=== PATIENT | male | born 1955 | race Caucasian/White ===

== ENCOUNTER 2020-07-09 13:17 | Inpatient (IN) | payer OTHER ==
[2020-07-09] MEDS ORDERED: Acetaminophen 500 MG TAB ONE (14:25)
[2020-07-09 14:45] LABS: #Monocytes 0.1 10x3/uL (0.0-1.1); #Neutrophils 7.4 10x3/uL (1.5-8.4); %Basophils 0.3 % (0.0-2.0); %Eosinophils 0.4 % (0.0-6.0); %Lymphocytes 2.3 % (18.0-47.0); %Neutrophils 95.7 % (40.0-75.0); Hemoglobin 14.2 g/dL (13.5-17.5); Mean Corpuscular HGB CONC 32.9 g/dL (32.0-36.0); Mean Corpuscular Hemoglobin 29.3 pg (27.0-33.0); Mean Corpuscular Volume 89.1 fl (81.2-95.1); Mean Platelet Volume 10.9 fl (7.4-10.4); Platelet Count 152 10x3/uL (150-450); RBC Distribution Width 12.8 % (11.5-14.5); Red Blood Cell (RBC) Count 4.85 10x6/uL (4.32-5.72); White Blood Cell (WBC) Count 7.7 10x3/uL (3.5-10.5)
[2020-07-09 15:07] LABS: ALT (SGPT) 18 U/L (8-55); AST (SGOT) 19 U/L (5-34); Albumin 3.7 g/dL (3.4-4.8); Alkaline Phosphatase 97 U/L (40-110); Anion Gap 18 mmol/L (10-20); BUN (Urea Nitrogen) 33 mg/dL (8.4-25.7); Calc. Creatinine Clearance 0 mL/min (70-130); Calcium 10.3 mg/dL (7.8-10.44); Carbon Dioxide 23 mmol/L (23-31); Chloride 99 mmol/L (98-107); Globulin 3.2 g/dL (2.4-3.5); Glucose 196 mg/dL (80-115); Potassium 4.5 mmol/L (3.5-5.1); Protein, Total 6.9 g/dL (5.8-8.1); Sodium 135 mmol/L (136-145)
[2020-07-09] MEDS ORDERED: Cefepime 2 GM VIAL ONE (15:08)
[2020-07-09] MEDS ORDERED: Ondansetron PF 4 MG/2 ML Vial IVP PRN (17:50)
[2020-07-09] MEDS ORDERED: Acetaminophen 650 MG Suppository PR PRN (17:50)
[2020-07-09] MEDS ORDERED: Ondansetron ODT 4 MG TAB PO PRN (17:50)
[2020-07-09] MEDS ORDERED: Dextrose 5% in Water 1,000 ML IV PRN (17:50)
[2020-07-09] MEDS ORDERED: Dextrose 50% Abboject 50 ML SYRINGE SLOW IVP PRN (17:50)
[2020-07-09] MEDS ORDERED: Insulin Regular 300 UNITS/3 ML VIAL ONE (19:09)
[2020-07-09] MEDS ORDERED: Heparin 5,000 UNITS/ML VIAL ONE (20:54)
[2020-07-09] MEDS: Vancomycin HCl 1 GM in Sodium Chloride 0.9% 250 ML 250 ML IVPB SCH (21:35)
[2020-07-10 04:35] LABS: #Basophils 0.1 10x3/uL (0.0-0.2); #Eosinphils 0.2 10x3/uL (0.0-0.5); #Monocytes 1.7 10x3/uL (0.0-1.1); #Neutrophils 13.9 10x3/uL (1.5-8.4); %Basophils 0.4 % (0.0-2.0); %Lymphocytes 5.3 % (18.0-47.0); %Monocytes 10.2 % (0.0-10.0); %Neutrophils 82.4 % (40.0-75.0); Hemoglobin 12.3 g/dL (13.5-17.5); Mean Corpuscular HGB CONC 32.2 g/dL (32.0-36.0); Mean Corpuscular Hemoglobin 28.8 pg (27.0-33.0); Mean Corpuscular Volume 89.5 fl (81.2-95.1); Mean Platelet Volume 10.8 fl (7.4-10.4); Platelet Count 141 10x3/uL (150-450); RBC Distribution Width 13.4 % (11.5-14.5); Red Blood Cell (RBC) Count 4.27 10x6/uL (4.32-5.72); White Blood Cell (WBC) Count 16.9 10x3/uL (3.5-10.5)
[2020-07-10 04:51] LABS: Anion Gap 15 mmol/L (10-20); BUN (Urea Nitrogen) 35 mg/dL (8.4-25.7); Calc. Creatinine Clearance 0 mL/min (70-130); Calcium 9.4 mg/dL (7.8-10.44); Carbon Dioxide 24 mmol/L (23-31); Chloride 101 mmol/L (98-107); Glucose 251 mg/dL (80-115); Potassium 4.6 mmol/L (3.5-5.1); Sodium 135 mmol/L (136-145)
[2020-07-10] MEDS: Sodium Chloride 0.9% 1,000 ML IV SCH ×3 (06:26→12:25)
[2020-07-10] MEDS: Insulin Regular 300 UNITS/3 ML VIAL SC PRN ×3 (06:27→20:34)
[2020-07-10] MEDS: Levothyroxine Sodium 50 MCG TAB PO SCH (06:28)
[2020-07-10] MEDS ORDERED: Mycophenolate ER 180 MG TAB PO SCH ×2 (07:30→21:00)
[2020-07-10] MEDS ORDERED: Tacrolimus 1 MG CAP PO SCH ×2 (09:00→21:00)
[2020-07-10] MEDS: Heparin 5,000 UNITS/ML VIAL SC SCH ×4 (09:00→20:30)
[2020-07-10] MEDS ORDERED: Flecainide 50 MG TAB PO SCH (09:00)
[2020-07-10] MEDS ORDERED: Tacrolimus 0.5 MG CAP PO SCH (09:00)
[2020-07-10 11:55] VITALS: BMI 35.3
[2020-07-10] MEDS: Tacrolimus 0.5 MG CAP PO SCH ×2 (12:11→20:27)
[2020-07-10] MEDS: hydrALAZINE 25 MG TAB PO SCH ×3 (12:12→21:44)
[2020-07-10] MEDS: Mycophenolate ER 180 MG TAB PO SCH ×3 (12:13→20:25)
[2020-07-10] MEDS: Vancomycin HCl 1 GM in Sodium Chloride 0.9% 250 ML 250 ML IVPB SCH ×2 (15:04→20:35)
[2020-07-10] MEDS: predniSONE 5 MG TAB PO SCH (15:09)
[2020-07-10] MEDS: Cefepime 2 GM in Sodium Chloride 0.9% 100 ML IVPB SCH (18:32)
[2020-07-10] MEDS: Atorvastatin Calcium 40 MG TAB PO SCH (20:24)
[2020-07-10] MEDS: Flecainide 50 MG TAB PO SCH (20:25)
[2020-07-10] MEDS ORDERED: Non-Formulary Medication 1 EACH (Hydralazine Hcl [Hydralazine Hcl] 50 MG Tablet) PO SCH (21:00)
[2020-07-10] MEDS ORDERED: Apixaban 5 MG TAB PO SCH (21:00)
[2020-07-10] MEDS ORDERED: Atorvastatin Calcium 40 MG TAB PO SCH (21:00)
[2020-07-11] MEDS: Sodium Chloride 0.9% 1,000 ML IV SCH (00:08)
[2020-07-11 04:57] LABS: #Basophils 0.1 10x3/uL (0.0-0.2); #Eosinphils 0.2 10x3/uL (0.0-0.5); #Monocytes 1.3 10x3/uL (0.0-1.1); #Neutrophils 10.8 10x3/uL (1.5-8.4); %Basophils 0.4 % (0.0-2.0); %Eosinophils 1.1 % (0.0-6.0); %Lymphocytes 6.9 % (18.0-47.0); %Monocytes 9.9 % (0.0-10.0); Mean Corpuscular HGB CONC 32.9 g/dL (32.0-36.0); Mean Corpuscular Hemoglobin 29.3 pg (27.0-33.0); Mean Platelet Volume 10.8 fl (7.4-10.4); Platelet Count 150 10x3/uL (150-450); RBC Distribution Width 13.1 % (11.5-14.5); Red Blood Cell (RBC) Count 4.44 10x6/uL (4.32-5.72); White Blood Cell (WBC) Count 13.3 10x3/uL (3.5-10.5)
[2020-07-11 05:08] LABS: ALT (SGPT) 14 U/L (8-55); AST (SGOT) 12 U/L (5-34); Albumin 3.2 g/dL (3.4-4.8); Alkaline Phosphatase 82 U/L (40-110); Anion Gap 14 mmol/L (10-20); BUN (Urea Nitrogen) 29 mg/dL (8.4-25.7); Bilirubin, Total 0.8 mg/dL (0.2-1.2); Calc. Creatinine Clearance 90 mL/min (70-130); Calcium 9.3 mg/dL (7.8-10.44); Carbon Dioxide 22 mmol/L (23-31); Chloride 105 mmol/L (98-107); Globulin 2.8 g/dL (2.4-3.5); Glucose 217 mg/dL (80-115); Magnesium 1.7 mg/dL (1.6-2.6); Potassium 4.6 mmol/L (3.5-5.1); Sodium 136 mmol/L (136-145)
[2020-07-11] MEDS: Levothyroxine Sodium 50 MCG TAB PO SCH (06:06)
[2020-07-11] MEDS: Insulin Regular 300 UNITS/3 ML VIAL SC PRN ×3 (06:07→21:40)
[2020-07-11 08:37] LABS: Vancomycin, Trough 13.1 ug/mL
[2020-07-11] MEDS ORDERED: Tacrolimus 1 MG CAP PO SCH (09:00)
[2020-07-11] MEDS: Mycophenolate ER 180 MG TAB PO SCH ×2 (09:54→21:38)
[2020-07-11] MEDS: predniSONE 5 MG TAB PO SCH (09:54)
[2020-07-11] MEDS: Tacrolimus 0.5 MG CAP PO SCH ×2 (09:54→21:35)
[2020-07-11] MEDS: Flecainide 50 MG TAB PO SCH ×2 (09:54→21:34)
[2020-07-11] MEDS: hydrALAZINE 25 MG TAB PO SCH ×3 (09:54→21:35)
[2020-07-11] MEDS: Cilostazol 100 MG TAB PO SCH ×2 (09:54→16:25)
[2020-07-11] MEDS: Heparin 5,000 UNITS/ML VIAL SC SCH ×3 (09:54→21:36)
[2020-07-11] MEDS: Vancomycin HCl 1 GM in Sodium Chloride 0.9% 250 ML 250 ML IVPB SCH (09:55)
[2020-07-11 11:17] LABS: Hemoglobin A1c 7.9 % (4.0-6.0)
[2020-07-11] MEDS: VANCOMYCIN 1.25 GM/250 ML BAG 1.25 GM in Premix Bag 1 BAG IVPB SCH (11:49)
[2020-07-11] MEDS: Cefepime 2 GM in Sodium Chloride 0.9% 100 ML IVPB SCH (16:25)
[2020-07-11] MEDS: Atorvastatin Calcium 40 MG TAB PO SCH (21:36)
[2020-07-11] MEDS ORDERED: Vancomycin HCl 750 MG in Sodium Chloride 0.9% 250 ML 250 ML IVPB SCH (22:45)
[2020-07-11] MEDS ORDERED: Vancomycin HCl 500 MG in Sodium Chloride 0.9% 100 ML IVPB SCH (23:59)
[2020-07-12] MEDS: VANCOMYCIN 1.25 GM/250 ML BAG 1.25 GM in Premix Bag 1 BAG IVPB SCH ×3 (01:34→22:14)
[2020-07-12] MEDS: Cefepime 2 GM in Sodium Chloride 0.9% 100 ML IVPB SCH ×2 (02:39→16:50)
[2020-07-12] MEDS: Levothyroxine Sodium 50 MCG TAB PO SCH (05:49)
[2020-07-12 05:59] LABS: #Eosinphils 0.2 10x3/uL (0.0-0.5); #Monocytes 1.3 10x3/uL (0.0-1.1); #Neutrophils 8.4 10x3/uL (1.5-8.4); %Basophils 0.4 % (0.0-2.0); %Lymphocytes 8.2 % (18.0-47.0); %Monocytes 11.7 % (0.0-10.0); %Neutrophils 77.1 % (40.0-75.0); Hemoglobin 12.6 g/dL (13.5-17.5); Mean Corpuscular HGB CONC 32.4 g/dL (32.0-36.0); Mean Corpuscular Hemoglobin 28.9 pg (27.0-33.0); Mean Corpuscular Volume 89.2 fl (81.2-95.1); Mean Platelet Volume 11.5 fl (7.4-10.4); Platelet Count 168 10x3/uL (150-450); Red Blood Cell (RBC) Count 4.36 10x6/uL (4.32-5.72); White Blood Cell (WBC) Count 10.9 10x3/uL (3.5-10.5)
[2020-07-12 06:03] LABS: Lactic Acid 0.9 mmol/L (0.5-2.2)
[2020-07-12 06:18] LABS: Anion Gap 16 mmol/L (10-20); BUN (Urea Nitrogen) 25 mg/dL (8.4-25.7); Calc. Creatinine Clearance 95 mL/min (70-130); Calcium 9.7 mg/dL (7.8-10.44); Carbon Dioxide 21 mmol/L (23-31); Chloride 104 mmol/L (98-107); Glucose 198 mg/dL (80-115); Potassium 4.5 mmol/L (3.5-5.1); Sodium 136 mmol/L (136-145)
[2020-07-12] MEDS: Mycophenolate ER 180 MG TAB PO SCH ×2 (09:01→22:02)
[2020-07-12] MEDS: predniSONE 5 MG TAB PO SCH (09:01)
[2020-07-12] MEDS: Flecainide 50 MG TAB PO SCH ×2 (09:01→22:00)
[2020-07-12] MEDS: hydrALAZINE 25 MG TAB PO SCH ×3 (09:01→22:00)
[2020-07-12] MEDS: Heparin 5,000 UNITS/ML VIAL SC SCH ×3 (09:01→22:01)
[2020-07-12] MEDS: Cilostazol 100 MG TAB PO SCH ×2 (09:01→19:23)
[2020-07-12] MEDS: Tacrolimus 0.5 MG CAP PO SCH ×2 (09:01→22:01)
[2020-07-12] MEDS ORDERED: Neomycin-Polymyxin 1 ML AMP ONE ×2 (13:28→14:13)
[2020-07-12] MEDS ORDERED: Fentanyl 100 MCG/2 ML VIAL ONE (13:42)
[2020-07-12] MEDS ORDERED: PROPOFOL 20 ML ONE (13:42)
[2020-07-12] MEDS ORDERED: Ondansetron PF 4 MG/2 ML Vial ONE (13:43)
[2020-07-12] MEDS ORDERED: Lidocaine 1% PF 5 ML VIAL ONE (13:43)
[2020-07-12] MEDS ORDERED: Dexamethasone 20 MG/5 ML VIAL ONE (13:43)
[2020-07-12 21:14] LABS: Vancomycin, Trough 18.8 ug/mL
[2020-07-12] MEDS: Atorvastatin Calcium 40 MG TAB PO SCH (22:01)
[2020-07-12] MEDS: Insulin Regular 300 UNITS/3 ML VIAL SC PRN (22:04)
[2020-07-12] MEDS: Acetaminophen 325 MG TAB PO PRN (22:11)
[2020-07-13] MEDS: Cefepime 2 GM in Sodium Chloride 0.9% 100 ML IVPB SCH ×2 (01:56→15:24)
[2020-07-13 04:41] LABS: Anion Gap 14 mmol/L (10-20); BUN (Urea Nitrogen) 32 mg/dL (8.4-25.7); Calc. Creatinine Clearance 84 mL/min (70-130); Calcium 9.1 mg/dL (7.8-10.44); Carbon Dioxide 21 mmol/L (23-31); Chloride 100 mmol/L (98-107); Glucose 409 mg/dL (80-115); Sodium 130 mmol/L (136-145)
[2020-07-13 04:42] LABS: #Monocytes 0.5 10x3/uL (0.0-1.1); #Neutrophils 10.8 10x3/uL (1.5-8.4); %Basophils 0.1 % (0.0-2.0); %Neutrophils 91.1 % (40.0-75.0); Hemoglobin 13.2 g/dL (13.5-17.5); Mean Corpuscular HGB CONC 32.8 g/dL (32.0-36.0); Mean Corpuscular Hemoglobin 29.2 pg (27.0-33.0); Mean Corpuscular Volume 89.2 fl (81.2-95.1); Mean Platelet Volume 11.6 fl (7.4-10.4); Platelet Count 179 10x3/uL (150-450); RBC Distribution Width 12.6 % (11.5-14.5); Red Blood Cell (RBC) Count 4.52 10x6/uL (4.32-5.72); White Blood Cell (WBC) Count 11.9 10x3/uL (3.5-10.5)
[2020-07-13] MEDS: Levothyroxine Sodium 50 MCG TAB PO SCH (06:28)
[2020-07-13] MEDS: Lantus 1000 UNITS/10 ML VIAL SC SCH (09:08)
[2020-07-13] MEDS: Heparin 5,000 UNITS/ML VIAL SC SCH ×3 (09:08→21:02)
[2020-07-13] MEDS: Insulin Regular 300 UNITS/3 ML VIAL SC PRN ×2 (09:09→21:11)
[2020-07-13] MEDS: Cholecalciferol 1,000 UNITS (25 MCG) TAB PO SCH (09:10)
[2020-07-13] MEDS: Multivit, Therapeutic 1 TAB PO SCH (09:10)
[2020-07-13] MEDS: Losartan 25 MG TAB PO SCH (09:10)
[2020-07-13] MEDS: Tacrolimus 0.5 MG CAP PO SCH ×2 (09:11→21:00)
[2020-07-13] MEDS: Magnesium Oxide 400 MG TAB PO SCH ×2 (09:11→21:02)
[2020-07-13] MEDS: Cilostazol 100 MG TAB PO SCH ×2 (09:11→15:24)
[2020-07-13] MEDS: Flecainide 50 MG TAB PO SCH ×2 (09:11→21:00)
[2020-07-13] MEDS: hydrALAZINE 25 MG TAB PO SCH ×3 (09:11→21:00)
[2020-07-13] MEDS: Zinc Gluconate 50 MG TAB PO SCH (09:11)
[2020-07-13] MEDS: Ascorbic Acid 500 mg Chewable Tablet PO SCH (09:11)
[2020-07-13] MEDS: Mycophenolate ER 180 MG TAB PO SCH ×2 (09:13→22:55)
[2020-07-13 09:38] LABS: Tacrolimus 8.8 ng/mL (2.0-20.0)
[2020-07-13] MEDS: VANCOMYCIN 1.25 GM/250 ML BAG 1.25 GM in Premix Bag 1 BAG IVPB SCH ×2 (11:55→21:26)
[2020-07-13] MEDS: predniSONE 5 MG TAB PO SCH (11:55)
[2020-07-13] MEDS: HumaLOG 300 UNITS/3 ML VIAL SC PRN (13:37)
[2020-07-13] MEDS: Atorvastatin Calcium 40 MG TAB PO SCH (21:00)
[2020-07-14] MEDS: Cefepime 2 GM in Sodium Chloride 0.9% 100 ML IVPB SCH ×2 (03:34→15:22)
[2020-07-14] MEDS ORDERED: Amlodipine 5 MG TAB PO SCH (04:00)
[2020-07-14 04:22] LABS: #Basophils 0.1 10x3/uL (0.0-0.2); #Eosinphils 0.2 10x3/uL (0.0-0.5); #Monocytes 0.8 10x3/uL (0.0-1.1); %Basophils 0.7 % (0.0-2.0); %Eosinophils 2.2 % (0.0-6.0); %Lymphocytes 12.3 % (18.0-47.0); %Monocytes 7.8 % (0.0-10.0); %Neutrophils 75.2 % (40.0-75.0); Hemoglobin 13.4 g/dL (13.5-17.5); Mean Corpuscular HGB CONC 32.1 g/dL (32.0-36.0); Mean Corpuscular Hemoglobin 29.1 pg (27.0-33.0); Mean Corpuscular Volume 90.9 fl (81.2-95.1); Mean Platelet Volume 10.9 fl (7.4-10.4); Platelet Count 213 10x3/uL (150-450); RBC Distribution Width 12.8 % (11.5-14.5); White Blood Cell (WBC) Count 10.7 10x3/uL (3.5-10.5)
[2020-07-14 05:06] LABS: Anion Gap 18 mmol/L (10-20); BUN (Urea Nitrogen) 36 mg/dL (8.4-25.7); Calc. Creatinine Clearance 91 mL/min (70-130); Calcium 9.8 mg/dL (7.8-10.44); Carbon Dioxide 19 mmol/L (23-31); Chloride 102 mmol/L (98-107); Glucose 294 mg/dL (80-115); Potassium 4.9 mmol/L (3.5-5.1); Sodium 134 mmol/L (136-145)
[2020-07-14] MEDS: Levothyroxine Sodium 50 MCG TAB PO SCH (06:37)
[2020-07-14] MEDS: HumaLOG 300 UNITS/3 ML VIAL SC PRN ×3 (06:38→21:11)
[2020-07-14] MEDS: Cilostazol 100 MG TAB PO SCH ×2 (08:34→15:21)
[2020-07-14] MEDS: Zinc Gluconate 50 MG TAB PO SCH (08:35)
[2020-07-14] MEDS: Multivit, Therapeutic 1 TAB PO SCH (08:35)
[2020-07-14] MEDS: Ascorbic Acid 500 mg Chewable Tablet PO SCH (08:35)
[2020-07-14] MEDS: Heparin 5,000 UNITS/ML VIAL SC SCH ×3 (08:35→21:03)
[2020-07-14] MEDS: Lantus 1000 UNITS/10 ML VIAL SC SCH (08:35)
[2020-07-14] MEDS: Cholecalciferol 1,000 UNITS (25 MCG) TAB PO SCH (08:35)
[2020-07-14] MEDS: Losartan 25 MG TAB PO SCH (08:36)
[2020-07-14] MEDS: Mycophenolate ER 180 MG TAB PO SCH ×2 (08:36→21:03)
[2020-07-14] MEDS: Magnesium Oxide 400 MG TAB PO SCH ×2 (08:36→21:03)
[2020-07-14] MEDS: Flecainide 50 MG TAB PO SCH ×2 (08:36→21:03)
[2020-07-14] MEDS: predniSONE 5 MG TAB PO SCH (08:36)
[2020-07-14] MEDS: Tacrolimus 0.5 MG CAP PO SCH ×2 (08:36→21:04)
[2020-07-14] MEDS: hydrALAZINE 25 MG TAB PO SCH ×3 (08:36→21:03)
[2020-07-14] MEDS: VANCOMYCIN 1.25 GM/250 ML BAG 1.25 GM in Premix Bag 1 BAG IVPB SCH (08:38)
[2020-07-14 09:26] LABS: Vancomycin, Trough 26.6 ug/mL
[2020-07-14] MEDS: Atorvastatin Calcium 40 MG TAB PO SCH (21:03)
[2020-07-15] MEDS: Cefepime 2 GM in Sodium Chloride 0.9% 100 ML IVPB SCH ×2 (03:38→15:33)
[2020-07-15] MEDS ORDERED: hydrALAZINE 25 MG TAB PO SCH (04:15)
[2020-07-15] MEDS: Levothyroxine Sodium 50 MCG TAB PO SCH (05:17)
[2020-07-15] MEDS: Vancomycin HCl 1 GM in Sodium Chloride 0.9% 250 ML 250 ML IVPB SCH ×2 (05:18→17:05)
[2020-07-15] MEDS: HumaLOG 300 UNITS/3 ML VIAL SC PRN ×4 (05:23→21:37)
[2020-07-15 06:01] LABS: #Basophils 0.1 10x3/uL (0.0-0.2); #Eosinphils 0.3 10x3/uL (0.0-0.5); #Neutrophils 7.2 10x3/uL (1.5-8.4); %Basophils 0.9 % (0.0-2.0); %Eosinophils 3.2 % (0.0-6.0); %Lymphocytes 12.2 % (18.0-47.0); %Monocytes 9.6 % (0.0-10.0); %Neutrophils 70.6 % (40.0-75.0); Hemoglobin 13.9 g/dL (13.5-17.5); Mean Corpuscular Hemoglobin 28.5 pg (27.0-33.0); Mean Corpuscular Volume 88.9 fl (81.2-95.1); Mean Platelet Volume 10.7 fl (7.4-10.4); Platelet Count 242 10x3/uL (150-450); RBC Distribution Width 12.8 % (11.5-14.5); Red Blood Cell (RBC) Count 4.88 10x6/uL (4.32-5.72); White Blood Cell (WBC) Count 10.3 10x3/uL (3.5-10.5)
[2020-07-15 06:11] LABS: Anion Gap 16 mmol/L (10-20); BUN (Urea Nitrogen) 31 mg/dL (8.4-25.7); Calc. Creatinine Clearance 101 mL/min (70-130); Calcium 10.1 mg/dL (7.8-10.44); Carbon Dioxide 21 mmol/L (23-31); Chloride 104 mmol/L (98-107); Glucose 190 mg/dL (80-115); Potassium 4.9 mmol/L (3.5-5.1); Sodium 136 mmol/L (136-145)
[2020-07-15] MEDS: hydrALAZINE 25 MG TAB PO SCH ×4 (08:59→21:30)
[2020-07-15] MEDS: Losartan 25 MG TAB PO SCH (08:59)
[2020-07-15] MEDS: Multivit, Therapeutic 1 TAB PO SCH (08:59)
[2020-07-15] MEDS: Heparin 5,000 UNITS/ML VIAL SC SCH ×3 (08:59→21:30)
[2020-07-15] MEDS: Cholecalciferol 1,000 UNITS (25 MCG) TAB PO SCH (09:00)
[2020-07-15] MEDS: Flecainide 50 MG TAB PO SCH ×2 (09:00→21:30)
[2020-07-15] MEDS: Magnesium Oxide 400 MG TAB PO SCH ×2 (09:00→21:32)
[2020-07-15] MEDS: Tacrolimus 0.5 MG CAP PO SCH ×2 (09:00→21:31)
[2020-07-15] MEDS: predniSONE 5 MG TAB PO SCH (09:00)
[2020-07-15] MEDS: Zinc Gluconate 50 MG TAB PO SCH (09:00)
[2020-07-15] MEDS: Ascorbic Acid 500 mg Chewable Tablet PO SCH (09:04)
[2020-07-15] MEDS: Mycophenolate ER 180 MG TAB PO SCH ×2 (09:04→21:31)
[2020-07-15] MEDS: Lantus 1000 UNITS/10 ML VIAL SC SCH (09:04)
[2020-07-15] MEDS: Cilostazol 100 MG TAB PO SCH ×2 (09:31→15:34)
[2020-07-15] MEDS: Atorvastatin Calcium 40 MG TAB PO SCH (21:30)
[2020-07-16] MEDS: Cefepime 2 GM in Sodium Chloride 0.9% 100 ML IVPB SCH (03:23)
[2020-07-16 05:12] LABS: #Basophils 0.1 10x3/uL (0.0-0.2); #Eosinphils 0.3 10x3/uL (0.0-0.5); #Monocytes 1.1 10x3/uL (0.0-1.1); #Neutrophils 8.2 10x3/uL (1.5-8.4); %Basophils 0.7 % (0.0-2.0); %Eosinophils 2.9 % (0.0-6.0); %Lymphocytes 11.6 % (18.0-47.0); %Monocytes 9.5 % (0.0-10.0); %Neutrophils 71.2 % (40.0-75.0); Hemoglobin 13.6 g/dL (13.5-17.5); Mean Corpuscular HGB CONC 32.3 g/dL (32.0-36.0); Mean Corpuscular Hemoglobin 28.8 pg (27.0-33.0); Mean Platelet Volume 10.7 fl (7.4-10.4); Platelet Count 249 10x3/uL (150-450); RBC Distribution Width 12.9 % (11.5-14.5); Red Blood Cell (RBC) Count 4.73 10x6/uL (4.32-5.72); White Blood Cell (WBC) Count 11.6 10x3/uL (3.5-10.5)
[2020-07-16 05:26] LABS: Anion Gap 14 mmol/L (10-20); BUN (Urea Nitrogen) 28 mg/dL (8.4-25.7); Calc. Creatinine Clearance 106 mL/min (70-130); Calcium 9.8 mg/dL (7.8-10.44); Carbon Dioxide 23 mmol/L (23-31); Chloride 104 mmol/L (98-107); Glucose 149 mg/dL (80-115); Potassium 4.8 mmol/L (3.5-5.1); Sodium 136 mmol/L (136-145)
[2020-07-16] MEDS: Levothyroxine Sodium 50 MCG TAB PO SCH (06:19)
[2020-07-16] MEDS: Vancomycin HCl 1 GM in Sodium Chloride 0.9% 250 ML 250 ML IVPB SCH (06:20)
[2020-07-16] MEDS: HumaLOG 300 UNITS/3 ML VIAL SC PRN ×4 (06:23→21:43)
[2020-07-16] MEDS: Tacrolimus 0.5 MG CAP PO SCH ×2 (08:59→21:29)
[2020-07-16] MEDS: Flecainide 50 MG TAB PO SCH ×2 (08:59→21:30)
[2020-07-16] MEDS: Magnesium Oxide 400 MG TAB PO SCH ×2 (08:59→21:31)
[2020-07-16] MEDS: Cholecalciferol 1,000 UNITS (25 MCG) TAB PO SCH (08:59)
[2020-07-16] MEDS: Ascorbic Acid 500 mg Chewable Tablet PO SCH (08:59)
[2020-07-16] MEDS: hydrALAZINE 25 MG TAB PO SCH ×4 (09:00→21:31)
[2020-07-16] MEDS: Losartan 25 MG TAB PO SCH (09:00)
[2020-07-16] MEDS: Multivit, Therapeutic 1 TAB PO SCH (09:01)
[2020-07-16] MEDS: Zinc Gluconate 50 MG TAB PO SCH (09:01)
[2020-07-16] MEDS: Heparin 5,000 UNITS/ML VIAL SC SCH ×3 (09:01→21:31)
[2020-07-16] MEDS: predniSONE 5 MG TAB PO SCH (09:02)
[2020-07-16] MEDS: Lantus 1000 UNITS/10 ML VIAL SC SCH (09:13)
[2020-07-16] MEDS: Mycophenolate ER 180 MG TAB PO SCH ×2 (09:14→21:30)
[2020-07-16] MEDS: Cilostazol 100 MG TAB PO SCH ×2 (09:19→16:40)
[2020-07-16 10:13] LABS: Fungus Stain Final report (.)
[2020-07-16] MEDS: Acetaminophen 325 MG TAB PO PRN (14:44)
[2020-07-16] MEDS: metroNIDAZOLE 500 MG TAB PO SCH ×2 (14:48→21:30)
[2020-07-16] MEDS: Amoxicillin/Potassium Clav 875 MG TAB PO SCH (21:28)
[2020-07-16] MEDS: Atorvastatin Calcium 40 MG TAB PO SCH (21:28)
[2020-07-17 05:41] LABS: #Basophils 0.1 10x3/uL (0.0-0.2); #Eosinphils 0.4 10x3/uL (0.0-0.5); %Basophils 0.6 % (0.0-2.0); %Eosinophils 2.6 % (0.0-6.0); %Monocytes 7.6 % (0.0-10.0); %Neutrophils 74.9 % (40.0-75.0); Mean Corpuscular HGB CONC 32.3 g/dL (32.0-36.0); Mean Corpuscular Volume 89.6 fl (81.2-95.1); Mean Platelet Volume 10.3 fl (7.4-10.4); Platelet Count 256 10x3/uL (150-450); RBC Distribution Width 13.1 % (11.5-14.5); Red Blood Cell (RBC) Count 4.83 10x6/uL (4.32-5.72); White Blood Cell (WBC) Count 13.3 10x3/uL (3.5-10.5)
[2020-07-17 05:50] LABS: Anion Gap 15 mmol/L (10-20); BUN (Urea Nitrogen) 27 mg/dL (8.4-25.7); Calc. Creatinine Clearance 100 mL/min (70-130); Calcium 10.1 mg/dL (7.8-10.44); Carbon Dioxide 21 mmol/L (23-31); Chloride 105 mmol/L (98-107); Glucose 194 mg/dL (80-115); Potassium 4.9 mmol/L (3.5-5.1); Sodium 136 mmol/L (136-145)
[2020-07-17] MEDS: HumaLOG 300 UNITS/3 ML VIAL SC PRN ×2 (06:24→15:34)
[2020-07-17] MEDS: Levothyroxine Sodium 50 MCG TAB PO SCH (06:29)
[2020-07-17] MEDS: Cilostazol 100 MG TAB PO SCH (06:29)
[2020-07-17] MEDS: metroNIDAZOLE 500 MG TAB PO SCH ×2 (08:14→14:36)
[2020-07-17] MEDS: Zinc Gluconate 50 MG TAB PO SCH (08:15)
[2020-07-17] MEDS: Tacrolimus 0.5 MG CAP PO SCH (08:15)
[2020-07-17] MEDS: hydrALAZINE 25 MG TAB PO SCH ×2 (08:15→14:26)
[2020-07-17] MEDS: Multivit, Therapeutic 1 TAB PO SCH (08:15)
[2020-07-17] MEDS: Ascorbic Acid 500 mg Chewable Tablet PO SCH (08:16)
[2020-07-17] MEDS: Magnesium Oxide 400 MG TAB PO SCH (08:16)
[2020-07-17] MEDS: Losartan 25 MG TAB PO SCH (08:16)
[2020-07-17] MEDS: predniSONE 5 MG TAB PO SCH (08:16)
[2020-07-17] MEDS: Amoxicillin/Potassium Clav 875 MG TAB PO SCH (08:16)
[2020-07-17] MEDS: Cholecalciferol 1,000 UNITS (25 MCG) TAB PO SCH (08:16)
[2020-07-17] MEDS: Heparin 5,000 UNITS/ML VIAL SC SCH ×2 (08:16→15:33)
[2020-07-17] MEDS: Lantus 1000 UNITS/10 ML VIAL SC SCH (08:16)
[2020-07-17] MEDS: Flecainide 50 MG TAB PO SCH (08:17)
[2020-07-17] MEDS: Mycophenolate ER 180 MG TAB PO SCH (08:41)
[2020-07-17 09:15] VITALS: BP 161/72; TEMP 97.4
[2020-07-27 15:14] LABS: Fungus Stain Final report (.)
== END 2020-07-17 16:30 | disposition home or self-care (01) | DRG 853 ==
LOC: CSHERS 13:17 → CSHERHOLD 16:58 → CSHTELE 07-10 08:05
PROVIDERS: ADMIT Orthopaedic Surgery; ATTEND Internal Medicine
PROC: 0JBR0ZZ Excision of Left Foot Subcutaneous Tissue and Fascia, Open Approach (ICD-10-PCS; principal; 2020-07-12)
PROC: 0SBN0ZZ Excision of Left Metatarsal-Phalangeal Joint, Open Approach (ICD-10-PCS; 2020-07-12)
DX: A41.9 Sepsis, unspecified organism (principal); N18.6 End stage renal disease; N17.9 Acute kidney failure, unspecified; M86.172 Other acute osteomyelitis, left ankle and foot; T86.19 Other complication of kidney transplant; I12.0 Hypertensive chronic kidney disease with stage 5 chronic kidney disease or end stage renal disease; E78.5 Hyperlipidemia, unspecified; Z79.01 Long term (current) use of anticoagulants; Z79.899 Other long term (current) drug therapy; Z79.4 Long term (current) use of insulin; Z79.52 Long term (current) use of systemic steroids; I48.91 Unspecified atrial fibrillation; E11.621 Type 2 diabetes mellitus with foot ulcer; L97.529 Non-pressure chronic ulcer of other part of left foot with unspecified severity; E11.42 Type 2 diabetes mellitus with diabetic polyneuropathy; E11.69 Type 2 diabetes mellitus with other specified complication; E66.9 Obesity, unspecified; E11.65 Type 2 diabetes mellitus with hyperglycemia; I25.10 Atherosclerotic heart disease of native coronary artery without angina pectoris; Z68.35 Body mass index [BMI] 35.0-35.9, adult; E11.22 Type 2 diabetes mellitus with diabetic chronic kidney disease
CPT/HCPCS: 36415; 36416; 76770; 80048; 80053; 80197; 80202; 83036; 83605; 83735; 85025; 85652; 86140; 87040; 87070; 87102; 87205; 87206; 93005; 93010; 94760; 96365; 96367; 96372; J0692; J1100; J1644; J1815; J2405; J2704; J3010; J3370; J3490; J7050; J7507; J7512; J7518

== ENCOUNTER 2021-11-29 11:34 | Outpatient (CLI) | payer BC, MEDICARE ==
[2021-11-29 12:28] LABS: Hemoglobin 13.2 g/dL (13.5-17.5); Mean Corpuscular HGB CONC 32.2 g/dL (32.0-36.0); Mean Corpuscular Hemoglobin 29.8 pg (27.0-33.0); Mean Corpuscular Volume 92.6 fl (81.2-95.1); Mean Platelet Volume 11.7 fl (7.4-10.4); Platelet Count 189 10x3/uL (150-450); RBC Distribution Width 13.2 % (11.5-14.5); Red Blood Cell (RBC) Count 4.43 10x6/uL (4.32-5.72); White Blood Cell (WBC) Count 8.3 10x3/uL (3.5-10.5)
[2021-11-29 12:55] LABS: ALT (SGPT) 38 U/L (8-55); AST (SGOT) 25 U/L (5-34); Albumin 3.9 g/dL (3.4-4.8); Alkaline Phosphatase 98 U/L (40-110); Anion Gap 16 mmol/L (10-20); BUN (Urea Nitrogen) 45 mg/dL (8.4-25.7); Bilirubin, Total 0.8 mg/dL (0.2-1.2); Calc. Creatinine Clearance 0 mL/min (70-130); Calcium 9.9 mg/dL (7.8-10.44); Carbon Dioxide 24 mmol/L (23-31); Chloride 103 mmol/L (98-107); Estimated GFR 33; Globulin 2.6 g/dL (2.4-3.5); Glucose 150 mg/dL (80-115); Potassium 4.6 mmol/L (3.5-5.1); Protein, Total 6.5 g/dL (5.8-8.1); Sodium 138 mmol/L (136-145)
[2021-11-29 12:57] LABS: INR-International Normal Ratio 1.1; Prothrombin Time 11.4 sec (9.5-12.1)
== END 2021-11-29 11:35 | disposition home or self-care (01) ==
LOC: CSHLAB 11:34
PROVIDERS: ATTEND Specialist
DX: Z01.812 Encounter for preprocedural laboratory examination (principal); Z20.822 Contact with and (suspected) exposure to COVID-19
CPT/HCPCS: 80053; 83735; 85027; 85610; 85730; 87811

== ENCOUNTER → 2021-12-03 | Day surgery (SDC) | payer BC, MEDICARE ==
[2021-12-02 14:14] VITALS: BMI 33.5
[~2021-12-03] MED LIST: Atropine Sulfate 0.4 mg/1 ml Vial ONE; PROPOFOL 20 ML ONE
== END ==
LOC: CSHSDC 09:56
PROVIDERS: ATTEND Specialist
PROC: 5A2204Z Restoration of Cardiac Rhythm, Single (ICD-10-PCS; principal; 2021-12-03)
DX: I48.0 Paroxysmal atrial fibrillation (principal); I25.118 Atherosclerotic heart disease of native coronary artery with other forms of angina pectoris; I13.0 Hypertensive heart and chronic kidney disease with heart failure and stage 1 through stage 4 chronic kidney disease, or unspecified chronic kidney disease; I50.30 Unspecified diastolic (congestive) heart failure; E11.22 Type 2 diabetes mellitus with diabetic chronic kidney disease; N18.9 Chronic kidney disease, unspecified; E78.5 Hyperlipidemia, unspecified; E11.42 Type 2 diabetes mellitus with diabetic polyneuropathy; Z86.16 Personal history of COVID-19; E11.51 Type 2 diabetes mellitus with diabetic peripheral angiopathy without gangrene; Z79.899 Other long term (current) drug therapy; Z79.01 Long term (current) use of anticoagulants; Z79.4 Long term (current) use of insulin
CPT/HCPCS: 92960; 93005; 93010; J0461; J2704

== ENCOUNTER 2022-10-28 11:57 | Emergency (ER) | payer BC, MEDICARE ==
[2022-10-28 14:40] LABS: %Basophils 0.3 % (0.0-2.0); %Lymphocytes 2.6 % (18.0-47.0); %Monocytes 4.5 % (0.0-10.0); %Neutrophils 89.8 % (40.0-75.0); Hematocrit 38.7 % (38.8-50.0); Hemoglobin 12.8 g/dL (13.5-17.5); Mean Corpuscular HGB CONC 33.1 g/dL (32.0-36.0); Mean Corpuscular Volume 87.8 fl (81.2-95.1); Mean Platelet Volume 11.1 fl (7.4-10.4); Platelet Count 182 10x3/uL (130-400); RBC Distribution Width 14.6 % (11.5-14.5); Red Blood Cell (RBC) Count 4.41 10x6/uL (4.32-5.72); White Blood Cell (WBC) Count 22.8 10x3/uL (3.5-10.5)
[2022-10-28 14:41] LABS: #Basophils 0.1 10x3/uL (0.0-0.2); #Neutrophils 20.5 10x3/uL (1.5-8.4)
[2022-10-28 15:06] LABS: Sodium 133 mmol/L (136-145)
[2022-10-28 15:07] LABS: Albumin 3.5 g/dL (3.4-4.8); Anion Gap 24 mmol/L (10-20); BUN (Urea Nitrogen) 69 mg/dL (8.4-25.7); Bilirubin, Total 1.1 mg/dL (0.2-1.2); Calc. Creatinine Clearance 0 mL/min (70-130); Calcium 9.6 mg/dL (7.6-10.4); Carbon Dioxide 19 mmol/L (23-31); Chloride 95 mmol/L (98-107); Estimated GFR 8; Globulin 3.5 g/dL (2.4-3.5); Glucose 144 mg/dL (80-115); Potassium 4.6 mmol/L (3.5-5.1)
[2022-10-28 15:08] LABS: ALT (SGPT) 17 U/L (8-55); AST (SGOT) 23 U/L (5-34); Alkaline Phosphatase 96 U/L (40-110)
[2022-10-28] MEDS ORDERED: Ondansetron PF 4 MG/2 ML Vial ONE (16:00)
[2022-10-28] MEDS ORDERED: Acetaminophen 325 MG TAB ONE (16:00)
[2022-10-28 16:04] LABS: INR-International Normal Ratio 1.2; PTT 33.6 sec (22.0-33.0); Prothrombin Time 13.2 sec (9.5-12.1)
[2022-10-28 16:20] LABS: Lipase Less than 4 U/L (8-78); Magnesium 1.6 mg/dL (1.6-2.6)
[2022-10-28 16:31] LABS: Troponin I 0.253 ng/mL (< 0.028)
[2022-10-28] MEDS ORDERED: cefTRIAXone (ROCEPHIN) 1 GM VIAL ONE (17:18)
[2022-10-28 18:37] LABS: Lactic Acid 2.7 mmol/L (0.5-2.2)
[2022-10-28] MEDS ORDERED: fentaNYL 50 mcg/mL 1 mL Vial ONE (19:10)
[2022-10-28 19:28] LABS: SARS-CoV-2 NAA Rapid Test Not Detected (NotDetected)
[2022-10-29] MEDS ORDERED: fentaNYL 50 mcg/mL 1 mL Vial ONE ×2 (00:18→01:40)
[2022-10-29] MEDS ORDERED: Cefepime 1 GM VIAL ONE (00:23)
[2022-10-29 00:37] LABS: ALT (SGPT) 15 U/L (8-55); AST (SGOT) 16 U/L (5-34); Albumin 3.1 g/dL (3.4-4.8); Alkaline Phosphatase 93 U/L (40-110); Anion Gap 21 mmol/L (10-20); BUN (Urea Nitrogen) 77 mg/dL (8.4-25.7); Bilirubin, Total 0.9 mg/dL (0.2-1.2); Calc. Creatinine Clearance 0 mL/min (70-130); Calcium 8.7 mg/dL (7.8-10.44); Carbon Dioxide 20 mmol/L (23-31); Chloride 93 mmol/L (98-107); Estimated GFR 7; Globulin 3.1 g/dL (2.4-3.5); Glucose 169 mg/dL (80-115); Potassium 4.4 mmol/L (3.5-5.1); Protein, Total 6.2 g/dL (5.8-8.1); Sodium 130 mmol/L (136-145)
[2022-10-29] MEDS ORDERED: Ondansetron PF 4 MG/2 ML Vial ONE (01:39)
== END 2022-10-29 01:57 | disposition short-term general hospital (02) ==
LOC: CSHERS 11:57
DX: N17.9 Acute kidney failure, unspecified (principal); N13.2 Hydronephrosis with renal and ureteral calculous obstruction; E11.22 Type 2 diabetes mellitus with diabetic chronic kidney disease; I12.0 Hypertensive chronic kidney disease with stage 5 chronic kidney disease or end stage renal disease; N18.6 End stage renal disease; Z94.0 Kidney transplant status; Z20.822 Contact with and (suspected) exposure to COVID-19; Z79.899 Other long term (current) drug therapy; Z79.4 Long term (current) use of insulin
CPT/HCPCS: 36415; 71045; 74176; 80053; 83605; 83690; 83735; 83880; 84443; 84484; 85025; 85610; 85730; 87040; 87077; 87149; 87186; 93005; 96365; 96375; 96376; J0692; J0696; J2405; J3010

== ENCOUNTER 2022-11-13 09:25 | Observation (INO) | payer BC, MEDICARE ==
[2022-11-13] MEDS ORDERED: Iopamidol 370 76% 100 ML VIAL ONE (09:39)
[2022-11-13 10:07] LABS: #Basophils 0.1 10x3/uL (0.0-0.2); #Eosinphils 0.2 10x3/uL (0.0-0.5); #Monocytes 0.8 10x3/uL (0.0-1.1); #Neutrophils 6.5 10x3/uL (1.5-8.4); %Basophils 1.2 % (0.0-2.0); %Eosinophils 2.1 % (0.0-6.0); %Lymphocytes 9.1 % (18.0-47.0); %Monocytes 9.8 % (0.0-10.0); %Neutrophils 77.4 % (40.0-75.0); Hematocrit 38.7 % (38.8-50.0); Hemoglobin 12.3 g/dL (13.5-17.5); Mean Corpuscular HGB CONC 31.8 g/dL (32.0-36.0); Mean Corpuscular Hemoglobin 27.9 pg (27.0-33.0); Mean Corpuscular Volume 87.8 fl (81.2-95.1); Platelet Count 298 10x3/uL (150-450); Red Blood Cell (RBC) Count 4.41 10x6/uL (4.32-5.72); White Blood Cell (WBC) Count 8.4 10x3/uL (3.5-10.5)
[2022-11-13 10:28] LABS: ALT (SGPT) 12 U/L (8-55); AST (SGOT) 15 U/L (5-34); Albumin 3.5 g/dL (3.4-4.8); Alkaline Phosphatase 103 U/L (40-110); Anion Gap 17 mmol/L (10-20); BUN (Urea Nitrogen) 40 mg/dL (8.4-25.7); Bilirubin, Total 0.6 mg/dL (0.2-1.2); Calc. Creatinine Clearance 0 mL/min (70-130); Calcium 9.5 mg/dL (7.8-10.44); Carbon Dioxide 26 mmol/L (23-31); Chloride 97 mmol/L (98-107); Estimated GFR 32; Globulin 3.2 g/dL (2.4-3.5); Glucose 179 mg/dL (80-115); Lipase 32 U/L (8-78); Potassium 3.7 mmol/L (3.5-5.1); Protein, Total 6.7 g/dL (5.8-8.1); Sodium 136 mmol/L (136-145)
[2022-11-13 10:29] LABS: Troponin I 0.094 ng/mL (< 0.028)
[2022-11-13 10:46] LABS: Bilirubin Neg (Negative); Blood, Urine 250 (Negative); Clarity Cloudy (Clear); Glucose, Urine (Dipstick) 50 mg/dL (Negative); Ketone, Urine Negative (Negative); Leukocyte 500 (Negative); Nitrite Negative (Negative); Protein, Urine (Dipstick) 100 mg/dl (Neg-Trace); Specific Gravity, Urine 1.015 (1.005-1.030); Urobilinogen Normal mg/dL (Less than 2)
[2022-11-13] MEDS ORDERED: Ondansetron PF 4 MG/2 ML Vial ONE (11:00)
[2022-11-13] MEDS ORDERED: fentaNYL 50 mcg/mL 1 mL Vial ONE (11:01)
[2022-11-13 11:11] LABS: CAUTI Indications for Culture Pelvic or flank pain; RBC/HPF Greater than 50 HPF (0-3)
[2022-11-13 11:12] LABS: Bacteria/HPF Rare-Few HPF (None Seen); Urine Culture Reflex No No
[2022-11-13] MEDS ORDERED: Aspirin Chewable 81 MG TAB ONE (12:29)
[2022-11-13 12:50] LABS: INR-International Normal Ratio 1.1; PTT 31.7 sec (22.0-33.0); Prothrombin Time 11.4 sec (9.5-12.1)
[2022-11-13] MEDS ORDERED: Ondansetron PF 4 MG/2 ML Vial IVP PRN (14:42)
[2022-11-13] MEDS ORDERED: Dextrose 50% Abboject 50 ML SYRINGE SLOW IVP PRN (14:42)
[2022-11-13] MEDS ORDERED: Glucagon 1 MG/ML KIT IM PRN (14:42)
[2022-11-13] MEDS ORDERED: Dextrose 5% in Water 1,000 ML IV PRN (14:42)
[2022-11-13] MEDS ORDERED: HumaLOG 300 UNITS/3 ML VIAL SC PRN (14:42)
[2022-11-13] MEDS ORDERED: Nitroglycerin 0.4 MG TAB (25 Tab Bottle) SL PRN (14:45)
[2022-11-13 15:31] LABS: Troponin I 0.188 ng/mL (< 0.028)
[2022-11-13] MEDS ORDERED: Lactated Ringer's 1,000 ML IV SCH (16:15)
[2022-11-13 17:00] LABS: Magnesium 1.6 mg/dL (1.6-2.6)
[2022-11-13] MEDS ORDERED: Potassium Chloride 20 MEQ TAB PO SCH (17:00)
[2022-11-13 17:18] VITALS: BMI 34.7
[2022-11-13] MEDS ORDERED: Potassium Chloride 20 MEQ TAB ONE (19:17)
[2022-11-13] MEDS ORDERED: Acetaminophen 325 MG TAB ONE (20:34)
[2022-11-13] MEDS: Acetaminophen 325 MG TAB PO PRN (20:38)
[2022-11-13] MEDS ORDERED: Apixaban 5 MG TAB ONE (20:52)
[2022-11-13 20:58] LABS: Troponin I 0.249 ng/mL (< 0.028)
[2022-11-13] MEDS: Tacrolimus 0.5 MG CAP PO SCH (21:04)
[2022-11-13] MEDS: Apixaban 5 MG TAB PO SCH (21:05)
[2022-11-13] MEDS: Mycophenolate DR 180 MG TAB PO SCH (21:05)
[2022-11-14 04:09] LABS: #Basophils 0.1 10x3/uL (0.0-0.2); #Eosinphils 0.3 10x3/uL (0.0-0.5); #Monocytes 0.8 10x3/uL (0.0-1.1); #Neutrophils 4.7 10x3/uL (1.5-8.4); %Basophils 1.3 % (0.0-2.0); %Eosinophils 3.8 % (0.0-6.0); %Lymphocytes 15.1 % (18.0-47.0); %Monocytes 11.6 % (0.0-10.0); %Neutrophils 67.8 % (40.0-75.0); Hematocrit 38.2 % (38.8-50.0); Mean Corpuscular HGB CONC 31.4 g/dL (32.0-36.0); Mean Corpuscular Hemoglobin 28.5 pg (27.0-33.0); Mean Corpuscular Volume 90.7 fl (81.2-95.1); Platelet Count 269 10x3/uL (150-450); RBC Distribution Width 14.2 % (11.5-14.5); Red Blood Cell (RBC) Count 4.21 10x6/uL (4.32-5.72); White Blood Cell (WBC) Count 6.9 10x3/uL (3.5-10.5)
[2022-11-14 04:20] LABS: Anion Gap 13 mmol/L (10-20); BUN (Urea Nitrogen) 34 mg/dL (8.4-25.7); Calc. Creatinine Clearance 72 mL/min (70-130); Calcium 9.4 mg/dL (7.8-10.44); Carbon Dioxide 28 mmol/L (23-31); Chloride 100 mmol/L (98-107); Estimated GFR 40; Glucose 132 mg/dL (80-115); Potassium 4.4 mmol/L (3.5-5.1); Sodium 137 mmol/L (136-145)
[2022-11-14] MEDS ORDERED: Levothyroxine Sodium 50 MCG TAB PO SCH (06:00)
[2022-11-14] MEDS: Tacrolimus 0.5 MG CAP PO SCH (08:51)
[2022-11-14] MEDS: Mycophenolate DR 180 MG TAB PO SCH (08:51)
[2022-11-14] MEDS: Apixaban 5 MG TAB PO SCH (08:52)
[2022-11-14] MEDS: Acetaminophen 325 MG TAB PO PRN ×2 (08:52→13:48)
[2022-11-14] MEDS ORDERED: Aspirin 81 mg Enteric Coated Tablet ONE (08:54)
[2022-11-14] MEDS ORDERED: Acetaminophen 325 MG TAB ONE (08:55)
[2022-11-14] MEDS ORDERED: Apixaban 5 MG TAB ONE (08:55)
[2022-11-14] MEDS ORDERED: Famotidine 20 MG TAB PO SCH ×2 (09:00→21:00)
[2022-11-14] MEDS ORDERED: Aspirin 81 mg Enteric Coated Tablet PO SCH (09:00)
[2022-11-14] MEDS ORDERED: predniSONE 5 MG TAB PO SCH (09:00)
[2022-11-14] MEDS ORDERED: Tacrolimus 0.5 MG CAP PO SCH (09:00)
[2022-11-14] MEDS ORDERED: hydrALAZINE 25 MG TAB PO SCH ×2 (11:00→21:00)
[2022-11-14] MEDS ORDERED: Magnesium 2 GM/50 ML(in water) 2 GM in Premix Bag 1 BAG IVPB SCH (11:00)
[2022-11-14] MEDS ORDERED: Losartan Potassium 50 MG TAB PO SCH (11:00)
[2022-11-14] MEDS ORDERED: hydrALAZINE 25 MG TAB ONE (11:03)
[2022-11-14] MEDS ORDERED: Magnesium 2 GM/50 ML BAG (IN WATER) ONE (11:08)
[2022-11-14 11:49] VITALS: TEMP 98.1
[2022-11-14 13:25] VITALS: BP 133/65
[2022-11-15] MEDS ORDERED: Losartan Potassium 50 MG TAB PO SCH ×2 (09:00)
== END 2022-11-14 15:28 | disposition home or self-care (01) ==
LOC: CSHERS 09:25 → CSHERHOLD 15:48 → CSHTELE 11-14 13:14
PROVIDERS: ADMIT Internal Medicine; ATTEND Physician Assistant Medical
DX: R07.9 Chest pain, unspecified (principal); I13.0 Hypertensive heart and chronic kidney disease with heart failure and stage 1 through stage 4 chronic kidney disease, or unspecified chronic kidney disease; I50.9 Heart failure, unspecified; E11.22 Type 2 diabetes mellitus with diabetic chronic kidney disease; N18.30 Chronic kidney disease, stage 3 unspecified; I48.91 Unspecified atrial fibrillation; E03.9 Hypothyroidism, unspecified; I25.10 Atherosclerotic heart disease of native coronary artery without angina pectoris; E78.5 Hyperlipidemia, unspecified; Z79.01 Long term (current) use of anticoagulants; Z79.899 Other long term (current) drug therapy; Z79.4 Long term (current) use of insulin; Z94.0 Kidney transplant status; Z90.49 Acquired absence of other specified parts of digestive tract; Z79.890 Hormone replacement therapy; Z86.73 Personal history of transient ischemic attack (TIA), and cerebral infarction without residual deficits
CPT/HCPCS: 36415; 36416; 70450; 71045; 71275; 74174; 80048; 80053; 81001; 83690; 83735; 83880; 84484; 85025; 85610; 85730; 93005; 93010; 93306; 94762; 96374; 96375; G0378; J2405; J3010; J3475; J7120; J7507; J7512; J7518; Q9967

== ENCOUNTER 2023-09-07 12:19 | Observation (INO) | payer BC, MEDICARE ==
[2023-09-07] MEDS ORDERED: Acetaminophen 500 MG TAB ONE (13:35)
[2023-09-07 13:40] LABS: #Basophils 0.05 10x3/uL (0.0-0.2); #Eosinphils 0.15 10x3/uL (0.0-0.5); #Monocytes 0.89 10x3/uL (0.0-1.1); %Basophils 0.5 % (0.0-2.0); %Eosinophils 1.4 % (0.0-6.0); %Lymphocytes 6.9 % (18.0-47.0); %Monocytes 8.2 % (0.0-10.0); %Neutrophils 82.6 % (40.0-75.0); Hematocrit 36.3 % (38.8-50.0); Hemoglobin 11.8 g/dL (13.5-17.5); Mean Corpuscular HGB CONC 32.5 g/dL (32.0-36.0); Mean Corpuscular Hemoglobin 28.7 pg (27.0-33.0); Mean Corpuscular Volume 88.3 fL (81.2-95.1); RBC Distribution Width 15.9 % (11.5-14.5); Red Blood Cell (RBC) Count 4.11 10x6/uL (4.32-5.72); White Blood Cell (WBC) Count 10.9 10x3/uL (3.5-10.5)
[2023-09-07] MEDS ORDERED: Iopamidol 370 76% 100 ML VIAL ONE (13:45)
[2023-09-07 13:53] LABS: Mean Platelet Volume 10.7 fL (7.4-10.4); Platelet Count 141 10x3/uL (150-450)
[2023-09-07 13:54] LABS: ALT (SGPT) 14 U/L (8-55); AST (SGOT) 18 U/L (5-34); Albumin 3.6 g/dL (3.4-4.8); Alkaline Phosphatase 94 U/L (40-110); Anion Gap 12 mmol/L (10-20); BUN (Urea Nitrogen) 29 mg/dL (8.4-25.7); Bilirubin, Total 0.6 mg/dL (0.2-1.2); Calc. Creatinine Clearance 0 mL/min (70-130); Calcium 9.5 mg/dL (7.8-10.44); Carbon Dioxide 29 mmol/L (23-31); Chloride 99 mmol/L (98-107); Estimated GFR 31; Globulin 3.1 g/dL (2.4-3.5); Glucose 150 mg/dL (80-115); Potassium 3.9 mmol/L (3.5-5.1); Protein, Total 6.7 g/dL (5.8-8.1); Sodium 136 mmol/L (136-145)
[2023-09-07 13:58] LABS: Troponin I 0.071 ng/mL (< 0.028)
[2023-09-07] MEDS ORDERED: Aspirin Chewable 81 MG TAB ONE (15:07)
[2023-09-07] MEDS ORDERED: hydrALAZINE 20 MG/ML VIAL ONE (15:09)
[2023-09-07] MEDS ORDERED: Senokot S 8.6-50 MG TAB PO PRN (17:08)
[2023-09-07] MEDS ORDERED: HumaLOG 300 UNITS/3 ML VIAL SC PRN (17:08)
[2023-09-07] MEDS ORDERED: Dextrose 50% Abboject 50 ML SYRINGE SLOW IVP PRN (17:08)
[2023-09-07] MEDS ORDERED: Dextrose 5% in Water 1,000 ML IV PRN (17:08)
[2023-09-07] MEDS ORDERED: Glucagon 1 MG/ML KIT IM PRN (17:08)
[2023-09-07 17:28] LABS: Magnesium 1.9 mg/dL (1.6-2.6)
[2023-09-07 18:19] LABS: Troponin I 0.065 ng/mL (< 0.028)
[2023-09-07 20:56] LABS: Troponin I 0.057 ng/mL (< 0.028)
[2023-09-07] MEDS: Atorvastatin Calcium 40 MG TAB PO SCH (21:04)
[2023-09-07] MEDS: Gabapentin 300 MG CAP PO SCH (21:04)
[2023-09-07] MEDS: hydrALAZINE 25 MG TAB PO SCH (21:05)
[2023-09-07] MEDS: Amiodarone 200 MG TAB PO SCH (21:06)
[2023-09-07] MEDS: Tacrolimus 0.5 MG CAP PO SCH (21:07)
[2023-09-07] MEDS: Bumetanide 1 MG TAB PO SCH (21:07)
[2023-09-07] MEDS: Mycophenolate DR 180 MG TAB PO SCH (21:07)
[2023-09-07 21:13] VITALS: BMI 34.7
[2023-09-08 04:30] LABS: #Basophils 0.05 10x3/uL (0.0-0.2); #Monocytes 0.86 10x3/uL (0.0-1.1); #Neutrophils 6.29 10x3/uL (1.5-8.4); %Basophils 0.6 % (0.0-2.0); %Eosinophils 3.5 % (0.0-6.0); %Monocytes 10.2 % (0.0-10.0); %Neutrophils 74.3 % (40.0-75.0); ALT (SGPT) 11 U/L (8-55); AST (SGOT) 14 U/L (5-34); Albumin 3.3 g/dL (3.4-4.8); Alkaline Phosphatase 90 U/L (40-110); Anion Gap 15 mmol/L (10-20); BUN (Urea Nitrogen) 28 mg/dL (8.4-25.7); Bilirubin, Total 0.5 mg/dL (0.2-1.2); Calc. Creatinine Clearance 61 mL/min (70-130); Calcium 9.8 mg/dL (7.8-10.44); Carbon Dioxide 24 mmol/L (23-31); Chloride 102 mmol/L (98-107); Estimated GFR 33; Globulin 3.2 g/dL (2.4-3.5); Glucose 142 mg/dL (80-115); Hematocrit 35.5 % (38.8-50.0); Hemoglobin 11.2 g/dL (13.5-17.5); Mean Corpuscular HGB CONC 31.5 g/dL (32.0-36.0); Mean Corpuscular Hemoglobin 28.2 pg (27.0-33.0); Mean Corpuscular Volume 89.4 fL (81.2-95.1); Mean Platelet Volume 10.6 fL (7.4-10.4); Platelet Count 135 10x3/uL (150-450); Potassium 3.9 mmol/L (3.5-5.1); Protein, Total 6.5 g/dL (5.8-8.1); RBC Distribution Width 16.1 % (11.5-14.5); Red Blood Cell (RBC) Count 3.97 10x6/uL (4.32-5.72); Sodium 137 mmol/L (136-145); White Blood Cell (WBC) Count 8.5 10x3/uL (3.5-10.5)
[2023-09-08] MEDS: Levothyroxine Sodium 50 MCG TAB PO SCH (05:31)
[2023-09-08] MEDS: Tacrolimus 0.5 MG CAP PO SCH (09:14)
[2023-09-08] MEDS: predniSONE 5 MG TAB PO SCH (09:14)
[2023-09-08] MEDS: Losartan 50 MG TAB PO SCH (12:16)
[2023-09-08 13:04] LABS: Free T4 (Free Thyroxine) 1.02 ng/dL (0.70-1.48); Thyroid Stimulating Hormone 5.0351 uIU/mL (0.35-4.94)
[2023-09-08] MEDS: HumaLOG 300 UNITS/3 ML VIAL SC PRN (17:14)
[2023-09-08] MEDS: Acetaminophen 325 MG TAB PO PRN (20:55)
[2023-09-09 05:06] LABS: #Basophils 0.06 10x3/uL (0.0-0.2); #Neutrophils 6.04 10x3/uL (1.5-8.4); %Basophils 0.7 % (0.0-2.0); %Eosinophils 3.6 % (0.0-6.0); %Lymphocytes 11.5 % (18.0-47.0); %Monocytes 10.9 % (0.0-10.0); %Neutrophils 72.9 % (40.0-75.0); Hematocrit 37.5 % (38.8-50.0); Hemoglobin 11.8 g/dL (13.5-17.5); Mean Corpuscular HGB CONC 31.5 g/dL (32.0-36.0); Mean Corpuscular Hemoglobin 27.7 pg (27.0-33.0); Mean Platelet Volume 10.1 fL (7.4-10.4); Platelet Count 130 10x3/uL (150-450); RBC Distribution Width 15.9 % (11.5-14.5); Red Blood Cell (RBC) Count 4.26 10x6/uL (4.32-5.72); White Blood Cell (WBC) Count 8.3 10x3/uL (3.5-10.5)
[2023-09-09 05:21] LABS: Anion Gap 12 mmol/L (10-20); BUN (Urea Nitrogen) 31 mg/dL (8.4-25.7); Calc. Creatinine Clearance 60 mL/min (70-130); Calcium 9.7 mg/dL (7.8-10.44); Carbon Dioxide 28 mmol/L (23-31); Chloride 99 mmol/L (98-107); Estimated GFR 33; Glucose 173 mg/dL (80-115); Magnesium 1.7 mg/dL (1.6-2.6); Sodium 135 mmol/L (136-145)
[2023-09-09] MEDS: Amiodarone 200 MG TAB PO SCH (08:24)
[2023-09-09] MEDS: Losartan 50 MG TAB PO SCH (08:25)
[2023-09-09] MEDS: Magnesium 2 GM/50 ML(in water) 2 GM in Premix 1 BAG IVPB SCH (09:39)
[2023-09-09 11:43] VITALS: BP 157/75; TEMP 98.1
== END 2023-09-09 13:38 | disposition home or self-care (01) ==
LOC: CSHERS 12:19 → CSHTELE 16:21
PROVIDERS: ADMIT Internal Medicine; ATTEND Internal Medicine
DX: R42 Dizziness and giddiness (principal); R55 Syncope and collapse; E11.22 Type 2 diabetes mellitus with diabetic chronic kidney disease; I13.2 Hypertensive heart and chronic kidney disease with heart failure and with stage 5 chronic kidney disease, or end stage renal disease; I50.32 Chronic diastolic (congestive) heart failure; N18.6 End stage renal disease; I48.92 Unspecified atrial flutter; I48.0 Paroxysmal atrial fibrillation; E78.5 Hyperlipidemia, unspecified; I35.0 Nonrheumatic aortic (valve) stenosis; G45.9 Transient cerebral ischemic attack, unspecified; E11.42 Type 2 diabetes mellitus with diabetic polyneuropathy; I16.0 Hypertensive urgency; R79.89 Other specified abnormal findings of blood chemistry; I25.118 Atherosclerotic heart disease of native coronary artery with other forms of angina pectoris; I70.213 Atherosclerosis of native arteries of extremities with intermittent claudication, bilateral legs; G47.30 Sleep apnea, unspecified; E78.2 Mixed hyperlipidemia; Z79.01 Long term (current) use of anticoagulants; Z94.0 Kidney transplant status; Z79.899 Other long term (current) drug therapy; Z79.4 Long term (current) use of insulin; Z90.49 Acquired absence of other specified parts of digestive tract; Z98.890 Other specified postprocedural states; Z95.2 Presence of prosthetic heart valve; Z88.0 Allergy status to penicillin
CPT/HCPCS: 36415; 36416; 70450; 71275; 80048; 80053; 83735; 83880; 84439; 84443; 84484; 85025; 93005; 93010; 94760; 96375; G0378; J0360; J1815; J3475; J7507; J7512; J7518; Q9967